=== PATIENT | male | born 1950 | race Caucasian/White ===

== ENCOUNTER → 2016-09-16 06:03 | Day surgery (SDC) | payer MEDICARE, BC ==
[~2016-09-16 06:03] MED LIST: Buffered Lidocaine 1% SYR 3ML* 3 ML/SYR SYRINGE INTRADERM ONE; Buffered Lidocaine 1% SYR 3ML* 3 ML/SYR SYRINGE ONE; Bupivacaine 0.5% W/EPI SDV* 30 ML VIAL ONE; Dexamethasone IV* 4 MG/ML 1 ML (4 MG) ONE; Famotidine IV* 10 MG/ML 2 ML (20 mg) IV ONE; Famotidine IV* 10 MG/ML 2 ML (20 mg) ONE; Glycopyrrolate IV* 0.2 MG/ML 1 ML VIAL ONE; HYDROcodone/ACETAMIN 5-325 MG* 1 TAB PO PRN; KETAMINE HCL* 50 MG/ML 10 ML VIAL ONE; Lidocaine 1% INJ* 10 MG/ML 30 ML SDV ONE; Lidocaine 2% MPF* 2 ML VIAL ONE; Lidocaine 2% PF* 10 ML AMP ONE; Midazolam* 1 MG/ML 5 ML VIAL (5 MG) ONE; Morphine INJ* 2 MG/ML 1 ML CARPUJECT IV PRN; Ondansetron INJ* 2 MG/ML VIAL ONE; PROCHLORPERAZINE INJ 5 MG/ML 2 ML VIAL IV PRN; Propofol* 10 MG/ML 20 ML BTL IV PUSH ONE; ceFAZolin 1 GM in Dextrose (*) 1 GM/50 ML BAG IVPB ONE; ceFAZolin 2 GM PREMIX (*) 2 GM/50 ML BAG IVPB ONE; fentaNYL* 50 MCG/ML 2 ML VIAL (100 MCG VIAL) IV PRN; fentaNYL* 50 MCG/ML 2 ML VIAL (100 MCG VIAL) ONE; oxyCODONE/Acetamin 5/325 MG* TAB PO PRN
[2016-09-16 10:06] VITALS: BP 155/65
--- NOTE | 2016-09-17 11:38 | OP ---
DATE OF OPERATION: 09/16/16 - [facility] DATE OF : 52 SURGEON: Brett Stiles MD DIRECTOR OF MIDWIFERY/STAFF MIDWIFE: None. ANESTHESIOLOGIST: Dr. Lowery. ANESTHESIA: Local MAC. PRE-OP DIAGNOSIS: Ventral incisional hernia. POST-OP DIAGNOSIS: Ventral incisional hernia. OPERATIVE PROCEDURE: Open ventral incisional hernia repair. ESTIMATED BLOOD LOSS: Minimal. IV FLUIDS: Crystalloids. SPECIMEN: None. DRAINS: None. COMPLICATIONS: None. COUNT: Needle, instrument, sponge counts were correct. DESCRIPTION OF PROCEDURE: The patient was brought to the operating room and placed on the table supine. Sequential compression devices were placed on both lower extremities and intravenous sedation was administered. The abdomen was prepped and draped in the usual sterile fashion. He received appropriate intravenous antibiotics. After he was sterilely prepped and draped, a time-out was performed. Local anesthetic was infiltrated into the skin and soft tissue surrounding the site of the hernia which was in the supraumbilical region. This was from a previous laparoscopic port site. The skin was opened along the line of previous scar and extended in each lateral direction in order to dissect out the hernia sac. This was difficult to reduce but eventually, the hernia contents were reduced, although the sac was still protruding. The sac was dissected with cautery circumferentially. The hernia defect was about 1.5 cm. The edges of the fascia were freshened using combination of cautery and sharp and blunt dissection. The defect was then closed with a 0 Ti-Cron suture, running this to and fro and tying it to itself. The wound was irrigated and closed in 2 layers with 3-0 Polysorb for the subcutaneous tissue, 4-0 Monocryls for the skin. Steri-Strips were applied with a dry dressing. The patient tolerated the procedure well. He was awakened and transferred to the recovery room in stable condition. CC: Dexter Tee MD* [id number]/[facility] #: [id number] MTDD
== END | disposition home or self-care (01) ==
LOC: OR 06:03
PROVIDERS: ATTEND Surgery
DX: K43.2 Incisional hernia without obstruction or gangrene (principal); I25.10 Atherosclerotic heart disease of native coronary artery without angina pectoris; I10 Essential (primary) hypertension; E78.5 Hyperlipidemia, unspecified; E11.9 Type 2 diabetes mellitus without complications; E66.8 Other obesity
CPT/HCPCS: J0690; J1100; J2001; J2250; J2405; J2704; J3010